=== PATIENT | male | born 1995 | race Caucasian/White ===

== ENCOUNTER 2017-04-07 16:55 | Emergency (ER) | payer SELFPAY ==
[~2017-04-07] VITALS: Ht 175.3 cm; Wt 78.0 kg
[2017-04-07 16:56] VITALS: BP 127/63; PULSE 54; RESP 12; TEMP 97.9; O2SAT 97
--- NOTE | 2017-04-07 17:30 | PD ---
HPI Chief Complaint: Medical Clearance Time Seen by Provider: 17:23 Travel History International Travel<30 days: No Contact w/Intl Traveler<30days: No Traveled to known affect area: No History of Present Illness HPI 21-year-old male presents to emergency department requesting medical clearance to return back to work after fracturing his right wrist. He was seen by a workman's comp doctor at [facility] for the fracture. He says the injury is not workman's comp related. He has no medical complaints at this time. He has a right Velcro wrist splint in place. Allergies to indomethacin. No other modifying factors or associated signs and symptoms. Allergies-Medications (Allergen,Severity, Reaction): Coded Allergies: indomethacin (Verified Allergy, Unknown, 04/07/17) Review of Systems Except as stated in HPI: all other systems reviewed are Neg Physical Exam Narrative GENERAL: Well-nourished, well-developed male patient, in no acute distress SKIN: Warm and dry. HEAD: Atraumatic. Normocephalic. EYES: Pupils equal and round. No scleral icterus. No injection or drainage. ENT: Mucosa pink and moist. Airway patent. NECK: Trachea midline. CARDIOVASCULAR: Regular rate. RESPIRATORY: No accessory muscle use. GASTROINTESTINAL: Flat. MUSCULOSKELETAL: Right Velcro wrist splint noted. No obvious deformities. No clubbing. No cyanosis. No edema. NEUROLOGICAL: Awake and alert. Oriented 3. No obvious cranial nerve deficits. Motor grossly within normal limits. Normal speech. PSYCHIATRIC: Appropriate mood and affect; insight and judgment normal. Data Data Last Documented VS Vital Signs Date Time Temp Pulse Resp B/P (MAP) Pulse Ox O2 Delivery O2 Flow Rate FiO2 04/07/17 16:56 97.9 54 12 127/63 (84) 97 MDM Medical Screen Exam Complete: Yes Emergency Medical Condition: No Differential Diagnosis Medical clearance Narrative Course Vital signs are stable and the patient is stable for outpatient follow-up and treatment. The patient has no urgent or emergent medical complaints. There is no emergent or urgent medical need at this time. I instructed the patient to follow up with their primary care provider. A medical screening exam was performed: At the time of evaluation the presenting medical condition was determined not to be of an emergent nature. The patient was given the option of receiving additional care, but declined. Patient was given options for additional community resources from which to obtain care. The Patient Has Been advised to seek medical attention for their presenting complaint. The patient has been advised to return to the ER at any time if an emergent condition develops. Primary Impression: Encounter for medical screening examination Condition: Stable Gala Lewis Apr 07, 2017 17:30
== END 2017-04-07 17:36 | disposition left against medical advice (07) ==
LOC: NEPK 16:55
DX: S62.101D Fracture of unspecified carpal bone, right wrist, subsequent encounter for fracture with routine healing (principal); X58.XXXD Exposure to other specified factors, subsequent encounter
CPT/HCPCS: 99281

== ENCOUNTER 2017-08-22 19:25 | Emergency (ER) | payer SELFPAY ==
[2017-08-22 19:28] VITALS: BP 139/63; PULSE 59; RESP 12; TEMP 98.1
--- NOTE | 2017-08-22 19:58 | PD ---
HPI Chief Complaint: Cold / Flu Symptoms Time Seen by Provider: 19:54 Travel History International Travel<30 days: No Contact w/Intl Traveler<30days: No Traveled to known affect area: No History of Present Illness HPI The patient is a 22 year old male who presents to the [facility] emergency department with a history of headache that began 2 days ago. It has been constant. It is located in the back of his head and behind his eyes bilaterally. It is a throbbing sensation. It is gradually been worsening with time in spite of taking Excedrin. He denies ever being diagnosed with migraine headaches in the past, however he is concerned that this may be a migraine. He reports having sensitivity to light and sound. He has had n/v x5. He denies having any diarrhea. He denies any family history of migraines. He denies any personal history of motion sickness. He is unsure whether he has had fevers. He denies having any cough, congestion, sore throat associated with this. He denies having any neck pain or stiffness, chest pain, shortness of breath, abdominal pain, urinary symptoms, or other neurologic symptoms. [facility] Past Medical History Narrative Medical The patient's past medical history is reportedly none. Medical History: Denies Significant Hx Tetanus Vaccination: Unknown Influenza Vaccination: No Past Surgical History Narrative Surgical The patient's past surgical history is significant for appendectomy, cholecystectomy, tonsil and adenoidectomy. Appendectomy: Yes Cholecystectomy: Yes Tonsillectomy: Yes Social History Alcohol Use: No Tobacco Use: No Substance Use: No Allergies-Medications (Allergen,Severity, Reaction): Coded Allergies: indomethacin (Verified Allergy, Unknown, 08/22/17) Reported Meds & Prescriptions Reported Meds & Active Scripts Active No Active Prescriptions or Reported Medications Narrative Medication Excedrin, Nyquil Review of Systems Except as stated in HPI: all other systems reviewed are Neg General / Constitutional: Positive: Fever Eyes: No: Visual changes HENT: Positive: Headaches, No: Rhinorrhea, Congestion, Neck Stiffness, Neck Pain Cardiovascular: No: Chest Pain or Discomfort Respiratory: No: Shortness of Breath Gastrointestinal: Positive: Nausea, Vomiting, No: Abdominal Pain Genitourinary: No: Dysuria Musculoskeletal: No: Pain Skin: No Rash Neurologic: Positive: Headache, No: Weakness, Focal Abnormalities, Change in Mentation, Slurred Speech, Sensory Disturbance Psychiatric: No: Depression Endocrine: No: Polydipsia Hematologic/Lymphatic: No: Easy Bruising Physical Exam Narrative General: The patient is a well-developed well-nourished male in no acute distress. Head and Neck exam: Head is normocephalic atraumatic. Eyes: EOMI, pupils are equal round and reactive to light. Nose: Midline septum with pink mucous membranes Mouth: Dentition unremarkable. Moist mucus membranes. Posterior oropharynx is not erythematous. No tonsillar hypertrophy. Uvula midline. Airway patent. Neck: No palpable lymphadenopathy. No nuchal rigidity. No thyromegaly. Negative Brudzinski, negative Kernig sign. Cardiovascular: Regular rate and rhythm without murmurs, gallops, or rubs. Lungs: Clear to auscultation bilaterally. No wheezes, rhonchi, or rales. Abdomen: Soft, without tenderness to palpation in all 4 quadrants of the abdomen. No guarding, rebound, or rigidity. Normal bowel sounds are audible. No tenderness on palpation of McBurney's point. Extremities: No clubbing, cyanosis, or edema. 2+ pulses in all 4 extremities. Back: No spinous process tenderness to palpation. No costovertebral angle tenderness to palpation. Neurologic Exam: Cranial nerves 2-12 were intact on exam. Strength is 5/5 in all 4 extremities. No sensory deficits noted. Skin Exam: No rash noted. Intact skin that is warm and dry. Data Data Last Documented VS Vital Signs Date Time Temp Pulse Resp B/P (MAP) Pulse Ox O2 Delivery O2 Flow Rate FiO2 08/22/17 19:40 Room Air 08/22/17 19:28 98.1 59 12 139/63 (88) Orders Orders Complete Blood Count With Diff (08/22/17 20:06) Comprehensive Metabolic Panel (08/22/17 20:06) Lipase (08/22/17 20:06) Urinalysis - C+S If Indicated (08/22/17 20:06) Magnesium (Mg) (08/22/17 20:06) Influenzae A/B Antigen (08/22/17 20:06) Ct Brain W/O Iv Contrast(Rout) (08/22/17 20:06) Iv Access Insert/Monitor (08/22/17 20:06) Ecg Monitoring (08/22/17 20:06) Oximetry (08/22/17 20:06) Sodium Chlor 0.9% 1000 Ml Inj (Ns 1000 M (08/22/17 20:15) Prochlorperazine Inj (Compazine Inj) (08/22/17 20:15) Acetaminophen (Tylenol) (08/22/17 20:15) Labs Laboratory Tests Test 08/22/17 20:15 White Blood Count 8.0 TH/MM3 Red Blood Count 4.78 MIL/MM3 Hemoglobin 15.4 GM/DL Hematocrit 44.7 % Mean Corpuscular Volume 93.4 FL Mean Corpuscular Hemoglobin 32.2 PG Mean Corpuscular Hemoglobin Concent 34.5 % Red Cell Distribution Width 13.4 % Platelet Count 188 TH/MM3 Mean Platelet Volume 8.6 FL Neutrophils (%) (Auto) 55.9 % Lymphocytes (%) (Auto) 32.0 % Monocytes (%) (Auto) 10.6 % Eosinophils (%) (Auto) 1.1 % Basophils (%) (Auto) 0.4 % Neutrophils # (Auto) 4.5 TH/MM3 Lymphocytes # (Auto) 2.6 TH/MM3 Monocytes # (Auto) 0.8 TH/MM3 Eosinophils # (Auto) 0.1 TH/MM3 Basophils # (Auto) 0.0 TH/MM3 CBC Comment DIFF FINAL Differential Comment MDM Medical Decision Making Medical Screen Exam Complete: Yes Emergency Medical Condition: Yes Medical Record Reviewed: Yes Differential Diagnosis Migraine headache, versus tension headache, versus viral syndrome, versus influenza Narrative Course During the course of the patient's emergency department visit, the patient's history, examination, and differential diagnosis were reviewed with the patient. The patient was placed on a cardiac monitor technician with oximetry and frequent blood pressure monitoring. The patient had IV access obtained and blood work sent for analysis. CT scan of the brain was ordered. The patient was initially provided normal saline 1 L IV fluid bolus, Compazine 10 mg IV for nausea, Tylenol 650 p.o. 1 for pain. After the patient initially consented to workup, the patient then stated that he needed to go to work, therefore he did not want to complete the workup at this time. I explained that he could have influenza, versus intracranial abnormality, versus other electrolyte derangements, however in spite of this the patient continues to wish to leave. The patient will be signing out AGAINST MEDICAL ADVICE prior to the completion of his workup. The patient is alert and oriented 3. AMA: The risks of leaving against medical advice without further evaluation treatment were discussed with the patient. These risks include intracranial abnormality, versus dehydration, versus electrolyte derangements, versus cardiac arrhythmia from electrolyte derangement, versus . The patient indicated understanding of these risks and appeared to have the capacity to make this decision. Diagnosis Primary Impression: Headache Qualified Codes: R51 - Headache Additional Impression: Vomiting Qualified Codes: R11.2 - Nausea with vomiting, unspecified Referrals: Primary Care Physician 2 days Patient Instructions: Acute Headache (ED), Acute Nausea and Vomiting (ED), General Instructions Scripts No Active Prescriptions or Reported Meds Disposition: 07 AGAINST MEDICAL ADVICE Condition: Stable Sandra Garcia MD Aug 22, 2017 19:58
[2017-08-22] MEDS ORDERED: ACETAMINOPHEN 325 MG TAB PO ONE (20:15)
[2017-08-22] MEDS ORDERED: SODIUM CHLOR 0.9% 1000 ML INJ 1,000 ML IV ONE (20:15)
[2017-08-22] MEDS ORDERED: PROCHLORPERAZINE INJ 10 MG/2 ML VIAL IV PUSH ONE (20:15)
[2017-08-22 21:06] LABS: AUTOMATED NEUTROPHIL # 4.5 TH/MM3 (1.8-7.7); BASOPHIL % 0.4 % (0.0-2.0); EOSINOPHIL # 0.1 TH/MM3 (0-0.4); EOSINOPHIL % 1.1 % (0.0-4.0); HEMATOCRIT 44.7 % (39.0-51.0); HEMOGLOBIN 15.4 GM/DL (13.0-17.0); LYMPHOCYTE # 2.6 TH/MM3 (1.0-4.8); MEAN CELL VOLUME 93.4 FL (80.0-100.0); MEAN CORPUSCULAR HEMOGLOBIN 32.2 PG (27.0-34.0); MEAN CORPUSCULAR HGB CONC 34.5 % (32.0-36.0); MEAN PLATELET VOLUME 8.6 FL (7.0-11.0); MONO % 10.6 % (0.0-8.0); MONOCYTE # 0.8 TH/MM3 (0-0.9); NEUT % 55.9 % (16.0-70.0); PLATELET COUNT 188 TH/MM3 (150-450); RED BLOOD COUNT 4.78 MIL/MM3 (4.50-5.90); RED CELL DISTRIBUTION WIDTH 13.4 % (11.6-17.2)
== END 2017-08-22 21:07 | disposition left against medical advice (07) ==
LOC: NEPC 19:25
DX: R51 Headache (principal); R11.2 Nausea with vomiting, unspecified; Z53.29 Procedure and treatment not carried out because of patient's decision for other reasons
CPT/HCPCS: 85025; 87804; 96374; 99284; J0780; J7030

== ENCOUNTER 2017-09-19 17:01 | Emergency (ER) | payer SELFPAY ==
[~2017-09-19] VITALS: Ht 177.8 cm; Wt 68.2 kg
[2017-09-19 17:39] VITALS: BP 114/81; PULSE 73; RESP 20; TEMP 98.4; O2SAT 98
[2017-09-19 18:56] LABS: AMORPHOUS SEDIMENT, URINE RARE; BACTERIA, URINE OCC /hpf; BILIRUBIN, URINE NEG (NEG); BLOOD, URINE NEG (NEG); GLUCOSE,URINE NEG (NEG); KETONE, URINE NEG (NEG); NITRITE,URINE NEG (NEG); URINE COLOR YELLOW (YELLW/STRAW); URINE LEUKOCYTE ESTERASE MOD (NEG)
[2017-09-19 19:02] LABS: AUTOMATED NEUTROPHIL # 3.6 TH/MM3 (1.8-7.7); BASOPHIL % 0.5 % (0.0-2.0); EOSINOPHIL # 0.1 TH/MM3 (0-0.4); EOSINOPHIL % 0.8 % (0.0-4.0); HEMATOCRIT 45.8 % (39.0-51.0); HEMOGLOBIN 15.6 GM/DL (13.0-17.0); LYMPH % 31.4 % (9.0-44.0); LYMPHOCYTE # 1.9 TH/MM3 (1.0-4.8); MEAN CELL VOLUME 93.4 FL (80.0-100.0); MEAN CORPUSCULAR HEMOGLOBIN 31.7 PG (27.0-34.0); MEAN PLATELET VOLUME 9.1 FL (7.0-11.0); MONO % 7.4 % (0.0-8.0); MONOCYTE # 0.4 TH/MM3 (0-0.9); NEUT % 59.9 % (16.0-70.0); PLATELET COUNT 197 TH/MM3 (150-450); RED BLOOD COUNT 4.91 MIL/MM3 (4.50-5.90)
[2017-09-19 19:06] LABS: ALBUMIN 4.5 GM/DL (3.4-5.0); AST (GOT) 14 U/L (15-39); BICARBONATE 29.5 MEQ/L (21.0-32.0); BLOOD UREA NITROGEN 11 MG/DL (7-18); CALCIUM 9.8 MG/DL (8.5-10.1); CHLORIDE 104 MEQ/L (98-107); CREATININE 1.15 MG/DL (0.60-1.30); GLOMERULAR FILTRATION RATE 81 ML/MIN (>89); GLUCOSE,RANDOM 98 MG/DL (74-106); SODIUM (NA) 139 MEQ/L (136-145)
[2017-09-19 19:07] LABS: ALT (GPT) 22 U/L (9-52)
[2017-09-19 19:09] LABS: ALKALINE PHOSPHATASE 84 U/L (45-117); TOTAL BILIRUBIN ADULT 0.6 MG/DL (0.2-1.0)
[2017-09-19] MEDS ORDERED: SODIUM CHLOR 0.9% 1000 ML INJ 1,000 ML IV SCH (19:21)
--- NOTE | 2017-09-19 19:24 | PD ---
HPI Chief Complaint: Abdominal Pain Time Seen by Provider: 19:15 Travel History International Travel<30 days: No Contact w/Intl Traveler<30days: No Traveled to known affect area: No History of Present Illness HPI 22-year-old male presents for evaluation of abdominal pain, nausea, vomiting, diarrhea. Symptoms started 2 days ago. Pain is primarily in the left upper quadrant with no evidence throughout the upper abdomen. Pain is sharp and worse when vomiting. No alleviating factors. He reports approximately 6 episodes of nonbloody emesis today as well as 10 episodes of watery stool a day. Denies any recent dietary changes. Denies any recent antibiotic use, recent travel. Denies dysuria, fevers or chills. No sick contacts. He reports past surgical history including cholecystectomy and appendectomy. No other complaints at this time. [facility] Past Surgical History Appendectomy: Yes Cholecystectomy: Yes Tonsillectomy: Yes Social History Alcohol Use: No Tobacco Use: No Substance Use: No Allergies-Medications (Allergen,Severity, Reaction): Coded Allergies: indomethacin (Verified Allergy, Unknown, 08/22/17) Reported Meds & Prescriptions Reported Meds & Active Scripts Active Zofran (Ondansetron HCl) 4 Mg Tab 4 Mg PO Q6HR PRN Protonix (Pantoprazole Sodium) 20 Mg Tab 20 Mg PO DAILY Review of Systems Except as stated in HPI: all other systems reviewed are Neg Physical Exam Narrative GENERAL: Well-developed well-nourished male in no acute distress SKIN: Warm and dry. HEAD: Atraumatic. Normocephalic. EYES: Pupils equal and round. No scleral icterus. No injection or drainage. ENT: No nasal bleeding or discharge. Mucous membranes pink and moist. NECK: Trachea midline. No JVD. CARDIOVASCULAR: Regular rate and rhythm. No murmur appreciated. RESPIRATORY: No accessory muscle use. Clear to auscultation. Breath sounds equal bilaterally. GASTROINTESTINAL: Abdomen soft, tender to palpation the epigastrium, left upper quadrant. No CVA tenderness. MUSCULOSKELETAL: No obvious deformities. No clubbing. No cyanosis. No edema. NEUROLOGICAL: Awake and alert. No obvious cranial nerve deficits. Motor grossly within normal limits. Normal speech. Data Data Last Documented VS Vital Signs Date Time Temp Pulse Resp B/P (MAP) Pulse Ox O2 Delivery O2 Flow Rate FiO2 09/19/17 17:39 98.4 73 20 114/81 (92) 98 Orders Orders Complete Blood Count With Diff (09/19/17 17:41) Comprehensive Metabolic Panel (09/19/17 17:41) Lipase (09/19/17 17:41) Urinalysis - C+S If Indicated (09/19/17 17:41) Iv Access Insert/Monitor (09/19/17 19:21) Pantoprazole Inj (Protonix Inj) (09/19/17 19:30) Sodium Chlor 0.9% 1000 Ml Inj (Ns 1000 M (09/19/17 19:21) Al-Mag Hy-Si 40-40-4 Mg/Ml Liq (Mag-Al P (09/19/17 19:30) Lidocaine 2% Viscous (Xylocaine 2% Visco (09/19/17 19:30) Ondansetron Inj (Zofran Inj) (09/19/17 19:30) Labs Laboratory Tests Test 09/19/17 18:20 09/19/17 18:23 White Blood Count 6.0 TH/MM3 Red Blood Count 4.91 MIL/MM3 Hemoglobin 15.6 GM/DL Hematocrit 45.8 % Mean Corpuscular Volume 93.4 FL Mean Corpuscular Hemoglobin 31.7 PG Mean Corpuscular Hemoglobin Concent 34.0 % Red Cell Distribution Width 13.0 % Platelet Count 197 TH/MM3 Mean Platelet Volume 9.1 FL Neutrophils (%) (Auto) 59.9 % Lymphocytes (%) (Auto) 31.4 % Monocytes (%) (Auto) 7.4 % Eosinophils (%) (Auto) 0.8 % Basophils (%) (Auto) 0.5 % Neutrophils # (Auto) 3.6 TH/MM3 Lymphocytes # (Auto) 1.9 TH/MM3 Monocytes # (Auto) 0.4 TH/MM3 Eosinophils # (Auto) 0.1 TH/MM3 Basophils # (Auto) 0.0 TH/MM3 CBC Comment DIFF FINAL Differential Comment Blood Urea Nitrogen 11 MG/DL Creatinine 1.15 MG/DL Random Glucose 98 MG/DL Total Protein 8.0 GM/DL Albumin 4.5 GM/DL Calcium Level 9.8 MG/DL Alkaline Phosphatase 84 U/L Aspartate Amino Transf (AST/SGOT) 14 U/L Alanine Aminotransferase (ALT/SGPT) 22 U/L Total Bilirubin 0.6 MG/DL Sodium Level 139 MEQ/L Potassium Level 4.4 MEQ/L Chloride Level 104 MEQ/L Carbon Dioxide Level 29.5 MEQ/L Anion Gap 6 MEQ/L Estimat Glomerular Filtration Rate 81 ML/MIN Lipase 90 U/L Urine Color YELLOW Urine Turbidity CLOUDY Urine pH 7.0 Urine Specific [place] 1.016 Urine Protein NEG mg/dL Urine Glucose (UA) NEG mg/dL Urine Ketones NEG mg/dL Urine Occult Blood NEG Urine Nitrite NEG Urine Bilirubin NEG Urine Urobilinogen LESS THAN 2.0 MG/DL Urine Leukocyte Esterase MOD Urine RBC 2 /hpf Urine WBC 6 /hpf Urine Amorphous Sediment RARE Urine Bacteria OCC /hpf Microscopic Urinalysis Comment CULT NOT INDICATED MDM Medical Decision Making Medical Screen Exam Complete: Yes Emergency Medical Condition: Yes Medical Record Reviewed: Yes Differential Diagnosis Gastritis, gastroenteritis, pancreatitis, peptic ulcer disease, colitis Narrative Course 22-year-old male with past surgical history including cholecystectomy and appendectomy presents with 2 days of pain in the upper abdomen, nausea, vomiting , diarrhea. Pain is primarily in the left upper quadrant. Lab work was obtained in triage which is essentially unremarkable. His lipase level is normal. His liver function is normal. He does not appear acutely dehydrated. His lab work does not suggest acute dehydration. He has no leukocytosis. I suspect viral gastroenteritis versus gastritis as the etiology of his symptoms. The patient will be given IV fluids, Protonix, Zofran, GI cocktail. Upon reexamination the patient feels improved. He will be discharged with Protonix and Zofran prescriptions. Diagnosis Primary Impression: Gastroenteritis Additional Instructions: Medication as prescribed. Avoid [id number] ibuprofen/Excedrin/Motrin/ naproxen/Aleve/Advil products. Slowly advance diet as tolerated. Follow-up with primary care physician in 1-2 weeks. Return for any emergent medical conditions. Med/Other Pt SpecificInfo: No Change to Meds Scripts Ondansetron (Zofran) 4 Mg Tab 4 MG PO Q6HR Y for NAUSEA OR VOMITING, #20 TAB 0 Refills Prov: Ariel Lagunas MD 09/19/17 Pantoprazole (Protonix) 20 Mg Tab 20 MG PO DAILY for Reflux, #30 TAB 0 Refills Prov: Ariel Lagunas MD 09/19/17 Disposition: 01 DISCHARGE HOME Condition: Stable Will Auguste Sep 19, 2017 19:24
[2017-09-19] MEDS ORDERED: PANT20 PO (19:28)
[2017-09-19] MEDS ORDERED: ZOFR4TAB PO (19:28)
[2017-09-19] MEDS ORDERED: LIDOCAINE VISCOUS 2% SOLN 15 ML UDC PO ONE (19:30)
[2017-09-19] MEDS ORDERED: ALUMINUM/MAGNESIUM/SIMETH 30 ML CUP PO ONE (19:30)
[2017-09-19] MEDS ORDERED: ONDANSETRON HCL 4 MG/2 ML VIAL IV PUSH ONE (19:30)
[2017-09-19] MEDS ORDERED: PANTOPRAZOLE SODIUM 40 MG VIAL IVP ONE (19:30)
== END 2017-09-19 20:55 | disposition home or self-care (01) ==
LOC: NED 17:01 → NEPD 20:55
DX: K52.9 Noninfective gastroenteritis and colitis, unspecified (principal); Z90.49 Acquired absence of other specified parts of digestive tract; Z79.899 Other long term (current) drug therapy
CPT/HCPCS: 80053; 81001; 83690; 85025; 96374; 96375; 99284; C9113; J2405; J7030